=== PATIENT | female | born 1970 | race African-American/Black ===

== ENCOUNTER 2018-04-14 07:55 | Day surgery (SDC) | payer BC, OTHER ==
[2018-04-13 09:02] VITALS: BMI 30.4
--- NOTE | 2018-04-14 09:02 | HP ---
History & Physical Update - Physical Physical: No Change - Assessment Assessment: No Change - Plan Plan: No Change (H&P reviwed , no changes, for hysteroscopy D&C , polypectomy)
[2018-04-14] MEDS ORDERED: MIDAZOLAM HCL 2 MG/2 ML SINGLE DOSE VIAL ONE (12:49)
[2018-04-14] MEDS ORDERED: PROPOFOL 20 ML ONE (12:49)
[2018-04-14] MEDS ORDERED: IBUPROFEN 600 MG TABLET (FP) PO PRN (13:29)
[2018-04-14] MEDS ORDERED: oxyCODONE HCL 5 MG TABLET PO PRN (13:29)
[2018-04-14] MEDS ORDERED: ONDANSETRON 4 MG/2 ML VIAL IVPUSH PRN ×2 (13:29→13:40)
[2018-04-14] MEDS ORDERED: IBUPROFEN 800 MG/8 ML IJ IVPB PRN (13:29)
[2018-04-14] MEDS ORDERED: ELECTROLYTE-148 SOLN 1,000 ML IV SCH (13:30)
[2018-04-14] MEDS ORDERED: LACTATED RINGERS SOLUTION 1,000 ML IV SCH (13:45)
[2018-04-14 15:29] VITALS: BP 133/85; PULSE 71; TEMP 97.4
--- NOTE | 2018-04-16 10:49 | PATH ---
Surgical Pathology Report Patient Name: MARIO AQUINO [facility]. Rec. #: [id number] /Age/Gender: 1970 (Age: 48) / F Account: [id number] Location: [facility] SURGICAL Taken: 04/14/2018 Received: 04/15/2018 Reported: 04/16/2018 Physicians: Misha Bashir M.D. Specimen(s) Received A: SUB MUCOUS LEIOMYOMA B: ENDOMETRIAL CURETTINGS AND PIECE OF FIBROID Clinical History Menorrhagia, submucous leiomyoma of uterus Final Diagnosis A. SUBMUCOSAL LEIOMYOMA, EXCISION: ENDOMETRIAL POLYP. SEPARATE ENDOCERVICAL TISSUE WITH NO SIGNIFICANT PATHOLOGIC CHANGE. B. ENDOMETRIAL CURETTINGS AND PIECE OF FIBROID, EXCISION: ENDOMETRIAL POLYP. SEPARATE SECRETORY TYPE ENDOMETRIUM. SEPARATE SMALL PIECE OF SMOOTH MUSCLE. SEE COMMENT. SEPARATE ENDOCERVICAL TISSUE WITH NO SIGNIFICANT PATHOLOGIC CHANGE. Comment: This may represent portion of submucosal leiomyoma in the proper clinical setting. Clinical correlation recommended. Electronically Signed Quang Mera M.D. Gross Description A. Received in formalin labeled "submucous leiomyoma," is a 0.5 x 0.4 x 0.2 cm aggregate of burrell soft tissue fragments. The formalin is filtered and the specimen is entirely submitted in one cassette. B. Received in formalin labeled "endometrial curetting and piece of fibroid," is a 4.0 x 2.7 x 0.3 cm aggregate of burrell soft tissue fragments. The formalin is filtered and the specimen is entirely submitted in 2 cassettes. /04/15/2018 saudi/04/15/2018
--- NOTE | 2018-04-16 23:16 | OP ---
DATE OF OPERATION: 04/14/2018 PREOPERATIVE DIAGNOSIS: Menometrorrhagia, and submucosal fibroid uterus. POSTOPERATIVE DIAGNOSIS: Menometrorrhagia, and submucosal fibroid uterus. PROCEDURE: Hysteroscopy, dilation and curettage, and resection of submucosal myoma. SURGEON: Misha Bashir M.D. ANESTHESIA: General anesthesia. ESTIMATED BLOOD LOSS: About 50 mL. DESCRIPTION OF PROCEDURE: Patient was taken to operating room under adequate general anesthesia. In dorsal lithotomy position, examination under anesthesia revealed external genitalia to be normal, vagina was normal, cervix was clean no lesion. Uterus was enlarged, irregular, with multiple myomas. Adnexa, no masses palpable. Then with weighted speculum in the vagina, anterior lip of the cervix was grasped single-toothed tenaculum, uterine cavity was sounded to 9 cm, cervix slightly dilated and then with a Symphion resectoscope was introduced, visualization of endocervical canal appeared to be normal, endometrium was irregular, and there was a 2-cm submucosal myoma on the right fundal area of the uterus, both ostium were visualized and with a resectoscope, the submucosal myoma was resected and removed, and then D and C was done. No active bleeding was seen at the site of the myoma removal. Patient tolerated procedure well, left the OR in good condition. MISHA BASHIR M.D. /[id number]
== END 2018-04-14 15:55 | disposition home or self-care (01) ==
LOC: JASU-SURG 07:55
PROVIDERS: ATTEND Obstetrics & Gynecology
PROC: 0UDB7ZX Extraction of Endometrium, Via Natural or Artificial Opening, Diagnostic (ICD-10-PCS; 2018-04-14)
PROC: 0UJD8ZZ Inspection of Uterus and Cervix, Via Natural or Artificial Opening Endoscopic (ICD-10-PCS; 2018-04-14)
PROC: 0UB98ZZ Excision of Uterus, Via Natural or Artificial Opening Endoscopic (ICD-10-PCS; principal; 2018-04-14 09:30)
DX: N92.1 Excessive and frequent menstruation with irregular cycle (principal); D25.0 Submucous leiomyoma of uterus
CPT/HCPCS: 84703; 88305-TC; 94760